=== PATIENT | female | born 1935 | race Caucasian/White ===

== ENCOUNTER 2019-07-02 11:57 | Emergency (ER) | payer MEDICARE ==
[~2019-07-02] VITALS: Ht 154.9 cm; Wt 55.8 kg
[2019-07-02] MEDS ORDERED: ACIDOPHILUS1 EAC4 PO (14:19)
[2019-07-02] MEDS ORDERED: ALEVE220 M1 PO (14:19)
[2019-07-02] MEDS ORDERED: BYSTOLIC20 MG PO (14:22)
[2019-07-02] MEDS ORDERED: ASPIR 8181 MG PO (14:22)
[2019-07-02] MEDS ORDERED: CENTRUM SILVER1 EAC3 PO (14:22)
[2019-07-02] MEDS ORDERED: CATAPRES0.1 MG PO (14:23)
[2019-07-02] MEDS ORDERED: CRANBERRY500 M3 PO (14:23)
[2019-07-02] MEDS ORDERED: WOMEN'S MULTI200 MCG PO (14:24)
[2019-07-02] MEDS ORDERED: HYDRALAZINE HCL25 MG PO (14:25)
[2019-07-02] MEDS ORDERED: ISOSORBIDE MONO30 MG PO (14:25)
[2019-07-02] MEDS ORDERED: NEURONTIN300 MG PO (14:25)
[2019-07-02] MEDS ORDERED: KEPPRA250 MG PO (14:26)
[2019-07-02] MEDS ORDERED: LEVOTHYROXINE25 MCG PO (14:26)
[2019-07-02] MEDS ORDERED: COZAAR25 MG PO (14:26)
[2019-07-02] MEDS ORDERED: MYRBETRIQ50 MG PO (14:27)
[2019-07-02] MEDS ORDERED: OMEGA DHA92 MG PO (14:27)
[2019-07-02] MEDS ORDERED: PROTONIX20 MG PO (14:28)
[2019-07-02] MEDS ORDERED: K-TAB ER20 MEQ PO (14:28)
[2019-07-02] MEDS ORDERED: PROLIA60 MG/1 ML SUB-Q (14:29)
[2019-07-02] MEDS ORDERED: ZOCOR20 MG PO (14:30)
[2019-07-02] MEDS ORDERED: TRAZODONE HCL50 MG PO (14:30)
== END 2019-07-02 15:05 | disposition home or self-care (01) ==
LOC: ED 11:57
DX: M79.81 Nontraumatic hematoma of soft tissue (principal); I10 Essential (primary) hypertension; Z88.2 Allergy status to sulfonamides; Z79.899 Other long term (current) drug therapy; Z79.82 Long term (current) use of aspirin
CPT/HCPCS: 93971; 99283-25

== ENCOUNTER 2019-07-23 10:48 | Emergency (ER) | payer MEDICARE, OTHER ==
[~2019-07-23] VITALS: Ht 154.9 cm; Wt 55.8 kg
[~2019-07-23 10:48] MED LIST: ACIDOPHILUS1 EAC4 PO; ALEVE220 M1 PO; ASPIR 8181 MG PO; BYSTOLIC20 MG PO; CATAPRES0.1 MG PO; CENTRUM SILVER1 EAC3 PO; COZAAR25 MG PO; CRANBERRY500 M3 PO; HYDRALAZINE HCL25 MG PO; ISOSORBIDE MONO30 MG PO; K-TAB ER20 MEQ PO; KEPPRA250 MG PO; LEVOTHYROXINE25 MCG PO; MYRBETRIQ50 MG PO; NEURONTIN300 MG PO; OMEGA DHA92 MG PO; PROLIA60 MG/1 ML SUB-Q; PROTONIX20 MG PO; TRAZODONE HCL50 MG PO; WOMEN'S MULTI200 MCG PO; ZOCOR20 MG PO
--- OUTSIDE RECORDS SUMMARY | 2019-07-23 10:52 | XMS ---
PreManage Notification: NATHALIE EMANUEL Security Operations Planner Events No recent Security Events currently on file CRITERIA MET - [facility] - 2 Visits in 30 Days CARE PROVIDERS There are no care providers on record at this time. Mine has no Care Guidelines for this patient. [place] VISIT COUNT (12 MO.) 2 [facility] [place]. TOTAL 2 NOTE: Visits indicate total known visits. ED/C VISIT TRACKING (12 MO.) 07/23/2019 10:49 [facility] TYPE: Emergency COMPLAINT: - RT LEG INJURY 07/02/2019 11:[address] [facility] TYPE: Emergency COMPLAINT: - R LEG PAIN DIAGNOSES: - Other fpc (current) drug therapy - Allergy status to sulfonamides status - Essential (primary) hypertension - Nontraumatic hematoma of soft tissue - detention (current) use of aspirin - Pain in right leg INPATIENT VISIT TRACKING (12 MO.) No inpatient visits to display in this time frame [email or web address]
== END 2019-07-23 12:31 | disposition home or self-care (01) ==
LOC: ED 10:48
DX: S83.91XA Sprain of unspecified site of right knee, initial encounter (principal); S80.11XA Contusion of right lower leg, initial encounter; W54.1XXA Struck by dog, initial encounter; I10 Essential (primary) hypertension; Z88.2 Allergy status to sulfonamides; Z79.899 Other long term (current) drug therapy; Z79.82 Long term (current) use of aspirin
CPT/HCPCS: 73560; 99283-25

== ENCOUNTER 2019-08-28 20:33 | Observation (INO) | payer MEDICARE, OTHER ==
[~2019-08-28] VITALS: Ht 154.9 cm; Wt 59.0 kg
[~2019-08-28 20:33] MED LIST changes: -ISOSORBIDE MONO30 MG PO; +ISOSORBIDE MONO60 MG PO
[2019-08-28] MEDS ORDERED: NORVASC10 MG PO (20:57)
[2019-08-28] MEDS ORDERED: CLOPIDOGREL75 MG PO (20:58)
[2019-08-28] MEDS ORDERED: DETROL LA4 MG PO (21:06)
[2019-08-28] MEDS ORDERED: NAMENDA5 MG PO (21:08)
[2019-08-28] MEDS ORDERED: VESICARE10 MG PO (21:09)
[2019-08-28] MEDS ORDERED: TRAZODONE HCL50 MG PO (21:10)
[2019-08-28] MEDS ORDERED: PROLIA60 MG/1 ML SUB-Q (21:10)
[2019-08-28] MEDS ORDERED: SEROQUEL25 MG PO (21:12)
--- NOTE | 2019-08-28 23:02 | NUR ---
PT SPEECH IN NOT UNDERSTANDABLE. THIS IS NOT PT BASELINE PER DAUGHTER, PT IS ALSO NOT TRACKING WELL WITHEYES. RIAZ IS DEVIATING TO THE RIGHT, PT IS UNABLE TO FOLLOW COMMANDS TO FROWN, PT HAS A SLIGHT FACIAL DROOP ON HER RIGHT SIDE, BILATERAL HAND INSTALLATION TECHNICIAN ARE EQUAL IN STRENTH AND SO IS STRENGTH IN FEET. PT IS ABLE TO SWALLOW WATER AND PILLS WITHOUT DIFFICULTY SO FAR. V/S ARE WDL. ABD SOUNDS ARE PRESENT, LOBES ARE CLEAR, NO PERIPHERAL EDEMA NOTED, NO DECUBITUS ULCERS NOTED. PT DENIES PAIN.
--- NOTE | 2019-08-29 01:19 | NUR ---
PT IS SLEEPING AT THIS TIME. NO NEW CONCERNS NOTED.
--- NOTE | 2019-08-29 02:30 | NUR ---
PT AT THIS TIME IS STILL NOT ABLE TO FORMULATE CLEAR WORDS. SLIGHT RIGHT FACIAL DROOP PRESENT, RIGHT ARM HAD DRIFT BACK TO BED, ALL OTHER LIMBS WERE WDL, SENSATION IS INTACT, RIGHT PUPIL WAS VERY SLUGGISH TO REACT, LEFT PUPIL WAS WDL, PUPIL SEIZE ABOUT 6MM. ARM AND LEG STRENGTH IS EQUALE BILATERALLY, PT NEEDS TIME TO RESPOND TO COMMANDS AND AT TIMES IS NOT ABLE TO FOLLOW THEM. PT IS ORIENTED TO SELF AND ONLY OCCASIONALLY TO PLACE. I DID A NIH STROKE SCALE AND PT SCORED AN 11. BP IS A LITTLE ELEVATED, ALL OTHER V/S ARE WDL, ALL LOBES ARE CLEAR, ABD SOUNDS PRESENT, NO PREIPHERAL EDEMA NOTED.
--- NOTE | 2019-08-29 03:05 | NUR ---
PT WAS ABLE TO STAND UP AND PIVOT TO BEDSIDE COMMODE. PT WAS ALSO ABLE TO STATE CLEARLY AND CORRECTLY WHERE SHE IS AT THIS TIME.
--- NOTE | 2019-08-29 05:51 | NUR ---
PT ARRIVED ON FLOOR AT 2220, PT WAS ONLY ORIENT TO HER FIRST NAME, PT WAS SOMNOLENT FOR THE MOST PART AND HER SPEECH WAS VERY INCOMPREHENSIBLE. RIGHT SIDED FACIAL DROOP WAS NOTED, TOUNGE DIVIATED TO THE RIGHT. PT EYES WERE NOT TRACKING WELL PT HAD LEFT ARM DRIFT, EXTREMITY STRENGTH HOWEVER WAS EQUAL OVERALL. RIGHT PUPIL WAS VERY SLUGGISH WELL. V/S WERE WDL AND HAVE REMAINED SUCH THIS SHIFT. AT AROUND 0530 PT WAS AAOX4, HER SPEECH IS SPONTANEOUS AND CLEAR, PT IS STRONGER OVERALL. URINE OUTPUT IS ADEQUATE SO FAR, ALL LOBES ARE CLEAR, NO PERIPHERAL EDEMA NOTED. ABD SOUNDS ARE PRESENT.
--- NOTE | 2019-08-29 05:55 | NUR ---
CALL LIGHT ANSWERED. 1 PA TO BEDSIDE COMMODE. PATIENT IS BACK IN BED. DAUGHTER IN THE ROOM.
--- NOTE | 2019-08-29 07:58 | NUR ---
0720: REPORT RECIEVED FROM DEANNA LIZAMA AND MELINA LIZAMA. PT SLEEPING, CALL [place] WITHIN REACH AND FAMILY MEMEBER IN THE ROOM.
--- NOTE | 2019-08-29 09:30 | NUR ---
Cm initial eval completed. Little moved from [place] to live with her [place], in [place]. Pt at baseline has some dementia. She has c/o sciatic pain for some time. Pt. has good support as daughter, spouse, and grandson all live in the home and assist with Little. Pt use a cane and shower chair. Dr. Parish and Rn in room and walked patient with a walker. She complains of some dizziness, she is pleasant confused at times. Family lives in a one story house without step, per daughter pt is unable to open the door to go out. Financially stable and don't use food bank. Plan to dc to home today with family. Dr. Parish will order walker.
--- NOTE | 2019-08-29 10:20 | NUR ---
RX, notes, face sheet, dc summary faxed to [facility]. Called and spoke with Little at [facility] and notified pt will dc shortly and they will need to call daughter's number which is on the face sheet. Pt would like a blue walker.
--- NOTE | 2019-08-29 10:24 | NUR ---
PT RESTING IN HER BED WITH NO COMPLAINTS. PT DAUGHTER STATES THAT THE PT IS BASELINE STRENGTH AND MENTAL STATUS AT THIS TIME. NO COMPLAINTS AT THIS TIME. SEE ASSESSMENT.
--- NOTE | 2019-08-29 10:54 | NUR ---
IV SITES DC'D TIPS INTACT. VSS, DC INSTRUCTIONS GIVEN TO THE PT AND HER DAUGHTER (AYAD) WHO STATES GOOD UNDERSTANDING OF THE INSTRUCTIONS.
--- NOTE | 2019-08-29 11:00 | NUR ---
MED REC COMPLETE
[2019-08-29] MEDS ORDERED: VITAMIN D3125 MC2 PO (11:04)
--- NOTE | 2019-08-29 15:58 | EKG ---
[facility] [address] [place], [place] [address] Signed Normal sinus rhythm Left axis deviation Left bundle branch block Abnormal ECG No previous ECGs available Confirmed by NACHO DANIELLE DO ([id number]) on 08/29/2019 3:57:45 PM Electronically Signed By: NACHO DANIELLE DO 08/29/19 1558 PATIENT NAME: LELO EMANUELLINE Gerry Electrocardiogram DATE OF : 33 PHYSICIAN: NACHO DANIELLE DO REPORT #: [id number] REPORT IS CONFIDENTIAL AND NOT TO BE RELEASED WITHOUT AUTHORIZATION
== END 2019-08-29 11:15 | disposition home or self-care (01) ==
LOC: ED 20:33 → MS 20:35
PROVIDERS: ADMIT Student in an Organized Health Care Education/Training Program
DX: G93.41 Metabolic encephalopathy (principal); I10 Essential (primary) hypertension; Z79.899 Other long term (current) drug therapy; Z79.82 Long term (current) use of aspirin; Z88.2 Allergy status to sulfonamides; Z88.5 Allergy status to narcotic agent
CPT/HCPCS: 36415; 70450; 71045; 80048; 80053; 81001; 82140; 82607; 84443; 84484; 85025; 85610; 85651; 85730; 93005; 93010; 99285-25; G0378; G0480; J7121